=== PATIENT | male | born 2005 | race Caucasian/White ===

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

== ENCOUNTER 2024-02-27 22:16 | Emergency (ER) | payer BC, OTHER ==
[2024-02-27] MEDS ORDERED: ACETAMINOPHEN TAB 325 MG TAB ONE (23:20)
[2024-02-28] MEDS ORDERED: IPRATROPIUM-ALBUTEROL 3 ML NEB ONE (01:00)
[2024-02-28] MEDS ORDERED: WATER FOR INJECTION, STERILE 10 ML IV ONE (04:39)
[2024-02-28] MEDS ORDERED: methylPREDNISolone SOD SUCCI 125 MG/2 ML VIAL ONE (04:39)
--- NOTE | 2024-04-09 13:20 | XR ---
EXAM: XR Chest, 2 Views CLINICAL HISTORY: chest pain/sob TECHNIQUE: Frontal and lateral views of the chest. COMPARISON: No relevant prior studies available. FINDINGS: Lungs:Unremarkable. No consolidation. Pleural space:Unremarkable. No pneumothorax. Heart:Unremarkable. No cardiomegaly. Mediastinum:Unremarkable. Normal mediastinal contour. Bones/joints:Unremarkable. No acute fracture. IMPRESSION: Normal chest x-rays. Radiologist: Matt Gordon MD Electronically Signed: 02/28/24 04:19 Study first marked ready to read at 01:36, study last marked ready to read at 01:36, initial results transmitted at 04:19 MTDD
== END 2024-02-28 04:55 | disposition home or self-care (01) ==
LOC: EC 22:16
DX: J45.901 Unspecified asthma with (acute) exacerbation (principal)
CPT/HCPCS: 71046; 94640; 96372; 99283